=== PATIENT | male | born 1995 | race American Indian/Alaskan Native ===

== ENCOUNTER 2016-08-02 03:15 | Inpatient (IN) | payer MEDICAID ==
--- NOTE | 2016-08-02 03:49 | Emergency Department Report ---
- General Chief Complaint: Upper Respiratory Infection Stated Complaint: FLU SYMPTOMS Time Seen by Provider: 08/02/16 03:44 Source: patient Mode of arrival: Ambulatory Limitations: No Limitations - History of Present Illness Initial Comments: Patient is a 21-year-old male who presents to ED complaining of generalized body aches, cough, fever 5 days. Patient states that days ago he began with a fever. Patient states he measured a fever at 102F. Patient states he was taking [id number] Tylenol flu and cold medication but to no relief. Patient admits intermediate productive green mucous cough. Patient admits to night sweats, chills, moderate generalized body aches. Patient reports traveling to [place] where his family is from in April 2016. Patient denies nausea/vomiting/abdominal pain/diarrhea/ throat pain/runny nose. -: days(s) Consistency: intermittent Improves With: nothing Associated Symptoms: fever, chills, headache, cough, right sweats. denies: abdominal pain, nausea, vomiting, diarrhea, confusion - Related Data Home Medications Medication Instructions Recorded Confirmed Last Taken No Known Home Medications [No 08/02/16 08/02/16 Unknown Reported Home Medications] Allergies Allergy/AdvReac Type Severity Reaction Status Date / Time No Known Allergies Allergy Unverified 08/01/13 14:59 ED Review of Systems ROS: Stated complaint: FLU SYMPTOMS Other details as noted in HPI Constitutional: denies: chills, fever Eyes: denies: eye pain, eye discharge, vision change ENT: denies: ear pain, throat pain Respiratory: cough. denies: shortness of breath, wheezing Cardiovascular: denies: chest pain, palpitations Endocrine: no symptoms reported. denies: see HPI, excessive sweating, flushing , intolerance to cold Gastrointestinal: denies: abdominal pain, nausea, vomiting, diarrhea, constipation, hematemesis Genitourinary: denies: urgency, dysuria Musculoskeletal: denies: back pain, joint swelling, arthralgia Skin: denies: rash, lesions Neurological: denies: headache, weakness, paresthesias, confusion Psychiatric: denies: anxiety, depression Hematological/Lymphatic: denies: easy bleeding, easy bruising ED Past Medical Hx - Past Medical History Previous Medical History?: No - Surgical History Past Surgical History?: No - Social History Smoking Status: Current Every Day Smoker Substance Use Type: Marijuana - Medications Home Medications: Home Medications Medication Instructions Recorded Confirmed Last Taken Type No Known Home Medications [No 08/02/16 08/02/16 Unknown History Reported Home Medications] ED Physical Exam - General Limitations: No Limitations General appearance: alert, in no apparent distress - Head Head exam: Present: atraumatic, normocephalic - Eye Eye exam: Present: normal appearance, PERRL, EOMI - ENT ENT exam: Present: normal exam, mucous membranes moist - Neck Neck exam: Present: normal inspection. Absent: tenderness - Respiratory Respiratory exam: Present: normal lung sounds bilaterally, decreased breath sounds (on left ). Absent: respiratory distress, wheezes, rales, rhonchi, stridor - Cardiovascular Cardiovascular Exam: Present: regular rate, normal rhythm, tachycardia. Absent : systolic murmur, diastolic murmur, rubs, gallop - GI/Abdominal GI/Abdominal exam: Present: soft, normal bowel sounds. Absent: distended, tenderness, guarding, rebound - Rectal Rectal exam: Present: deferred - Extremities Exam Extremities exam: Present: normal inspection, full ROM - Back Exam Back exam: Present: normal inspection, full ROM. Absent: CVA tenderness (R), CVA tenderness (L) - Neurological Exam Neurological exam: Present: alert, oriented X3, CN II-XII intact - Psychiatric Psychiatric exam: Present: normal affect, normal mood - Skin Skin exam: Present: warm, dry, intact, normal color. Absent: rash ED Course Vital Signs 08/02/16 03:17 Temperature 100.0 F H Pulse Rate 98 H Respiratory 20 Rate Blood Pressure 144/83 [Right] O2 Sat by Pulse 100 Oximetry ED Medical Decision Making - Medical Decision Making Condition 21-year-old who presents with left lung hilar adenopathy. Patient has low-grade fever, pulse rate 98. Otherwise vital signs stable ED course: Patient received 650 mg of Tylenol. Chest x-ray ordered. Chest x-ray shows left upper lobe infiltrate measuring 6 cm lungs well-expanded no effusions or pneumothoraces. Heart size normal Point of care blood glucose:101. Rapid influenza test negative Urinalysis, CBC, Chem-7 ordered Discussed case and findings with hospitalist director hospice operations with decision to admit. Patient placed in isolation. - Differential Diagnosis 1 Tuberculosis 2 Sarcoidosis 3 Pneumonia 4 Neoplasm Critical care attestation.: If time is entered above; I have spent that time in minutes in the direct care of this critically ill patient, excluding procedure time. ED Disposition Clinical Impression: Pulmonary infiltrate in left lung on chest x-ray Disposition: OP ADMITTED IP TO THIS HOSP Is pt being admited?: Yes Does the pt Need Aspirin: No Condition: Stable Referrals: PRIMARY CARE, [Primary Care Provider] - 3-5 Days
[2016-08-02] MEDS ORDERED: TYLENOL PO ONE (03:58)
[2016-08-02] MEDS ORDERED: TYLENOL ONE (03:59)
--- NOTE | 2016-08-02 05:21 | XRay Report ---
FINAL REPORT PROCEDURE: XR CHEST ROUTINE 2V TECHNIQUE: A portable AP chest radiograph was obtained at 08/02/2016 04:01 (EST) . CPT 91081 HISTORY: prod cough/sob COMPARISON: No prior studies are available for comparison. FINDINGS: Heart: Normal. Mediastinum/Vessels: Lungs left hilar adenopathy.. Lungs/Pleural space: There is a large opacity in the left upper lung measuring 6 centimeters suggesting an infiltrate. Mass cannot be entirely excluded. Lungs are well-expanded. There are no effusions or pneumothoraces.. Bony thorax: No acute osseous abnormality. Life support devices: None. IMPRESSION: Heart size is normal.. There is a large opacity in the left upper lung measuring 6 centimeters suggesting an infiltrate. Mass cannot be entirely excluded. Lungs are well-expanded. There are no effusions or pneumothoraces.. Lungs left hilar adenopathy..
[2016-08-02 05:57] LABS: Bilirubin,Urine NEG (Negative); Blood,Urine NEG (Negative); Ketones,Urine TR mg/dL (Negative); Leukocyte Esterase,Urine NEG (Negative); Mucus,Urine FEW /HPF; Nitrite,Urine NEG (Negative); Protein,Urine <15 mg/dL mg/dL (Negative); Urobilinogen,Urine < 2.0 mg/dL (<2.0)
[2016-08-02 07:23] LABS: Hematocrit 39.7 % (35.5-45.6); Hemoglobin 13.6 gm/dl (11.8-15.2); Mean Corpuscular HGB Conc 34 % (32-34); Mean Corpuscular Hemoglobin 30 pg (28-32); Mean Corpuscular Volume 86 fl (84-94); Platelet Count 180 K/mm3 (140-440); Red Blood Count 4.59 M/mm3 (3.65-5.03); Red Cell Distribution Width 13.3 % (13.2-15.2); White Blood Count 7.6 K/mm3 (4.5-11.0)
[2016-08-02 08:19] LABS: Alanine Aminotransferase 21 units/L (7-56); Albumin 3.9 g/dL (3.9-5); Albumin/Globulin Ratio 1.1 %; Alkaline Phosphatase 55 units/L (35-129); Anion Gap 20 mmol/L; BUN/Creatinine Ratio 6.66; Bilirubin,Total 0.4 mg/dL (0.1-1.2); Blood Urea Nitrogen 6 mg/dL (9-20); Calcium 9.1 mg/dL (8.4-10.2); Carbon Dioxide 25 mmol/L (22-30); Chloride 97.2 mmol/L (98-107); Glucose 107 mg/dL (75-100); Sodium 138 mmol/L (137-145); Total Protein 7.4 g/dL (6.3-8.2)
[2016-08-02] MEDS ORDERED: MILK OF MAGNESIA PO PRN (08:53)
[2016-08-02] MEDS ORDERED: ZOFRAN IV PRN (08:53)
--- NOTE | 2016-08-02 09:15 | History and Physical Report ---
History of Present Illness Date of examination: 08/02/16 Date of admission: 08/02/16 06:46 Chief complaint: cough and fever History of present illness: Patient is a 21-year-old male who presents to ED complaining of generalized body aches, cough, fever 5 days. Patient states that days ago he began with a fever. Patient states he measured a fever at 102F. Patient states he was taking [id number] Tylenol flu and cold medication but no relief. Patient admits intermediate productive green mucous cough, night sweats, chills, moderate generalized body aches. Patient reports traveling to [place] where his family is from in April 2016. Patient denies nausea/vomiting/abdominal pain/diarrhea/ throat pain/runny nose. In the ER had CXR which showed left upper lobe infiltrates, he is getting admitted for possible TB and further management. Past History Past Medical History: No medical history Past Surgical History: No surgical history Social history: denies: smoking, alcohol abuse Family history: no significant family history Medications and Allergies Allergies Allergy/AdvReac Type Severity Reaction Status Date / Time No Known Allergies Allergy Unverified 08/01/13 14:59 Home Medications Medication Instructions Recorded Confirmed Last Taken Type No Known Home Medications [No 08/02/16 08/02/16 Unknown History Reported Home Medications] Active Meds: Active Medications Acetaminophen (Tylenol) 650 mg PO Q4H PRN PRN Reason: Pain MILD(1-3)/Fever >100.5/STALEY Albuterol/Ipratropium (Duoneb 0.5 Mg-3 Mg/3 Ml Soln) 1 ampul IH Q6HRT EDEN Bisacodyl (Dulcolax) 10 mg ID QDAY PRN PRN Reason: Constipation unrelieved by MOM Magnesium Hydroxide (Milk Of Magnesia) 30 ml PO Q4H PRN PRN Reason: Constipation Ondansetron HCl (Zofran) 4 mg IV Q8H PRN PRN Reason: N/V unrelieved by Reglan Oxycodone/Acetaminophen (Percocet 5/325) 1 tab PO Q6H PRN PRN Reason: Pain, Moderate (4-6) Review of System: Constitutional: +fever, + chills, +weight loss Ears, eyes, nose, mouth and throat: no nasal congestion, no nasal discharge, no sinus pressure, no vision change, no red eye. Neck: No neck pain or rigidity. Cardiovascular: pleuratic chest pain, no orthopnea, no palpitations, no leg swelling Respiratory: No shortness of breath, + cough, no congestion, no wheezing Gastrointestinal: no abdominal pain, no nausea, no vomiting Genitourinary : no dysuria, no hematuria Musculoskeletal: no joint swelling or muscle ache Integumentary: no rash, no pruritis Neurological: no parathesias, no numbness, no tingling Endocrine: no cold or heat intolerance, no polyuria or polydipsia Hematologic/Lymphatic: no easy bruising, no easy bleeding, no gland swelling Allergic/Immunologic: no urticaria, no angioedema. Exam - Physical Exam Narrative exam: GENERAL: This is well-developed well-nourished male lying on bed appeared to be in no discomfort. HEENT: Normocephalic. Atraumatic. Extraocular motions are intact. No conjunctival congestion or icterus. Patient has moist mucous membranes. External auditory canal and nares patent bilaterally. NECK: Supple. Trachea midline. No JVD, thyromagaly or lymphadenopathy. CHEST/LUNGS: Clear to auscultated bilaterally. There is no respiratory distress noted, breathing nonlabored. No wheezes crackles or rhonchi. HEART/CARDIOVASCULAR: Regular in rate and rhythm. PMI at the apex. There is no gallop rub or murmur. ABDOMEN: Abdomen is soft, nontender. Patient has normal bowel sounds. There is no abdominal distention. No organomagaly or rigidity. SKIN: There is no rash, no erythrema. There is no diaphoresis. Warm and dry. NEUROLOGY: The patient is awake, alert, and oriented. The patient is cooperative. The patient has normal speech. No focal motor deficit. MUSCULOSKELETAL: No joint effusion or tenderness. Muscle strength equal bilaterally. No muscle wasting. EXTRIMITY: No edema, cyanosis or clubbing. PSYCH: No depression or anxiety noted. Cooperative. - Constitutional Vitals: Temp Pulse Resp BP Pulse Ox 98.8 F 67 20 116/74 98 08/02/16 08:00 08/02/16 08:00 08/02/16 08:13 08/02/16 08:00 08/02/16 08:13 Results - Labs CBC & Chem 7: 08/02/16 06:50 08/02/16 06:50 Labs: Laboratory Last Values WBC 7.6 K/mm3 (4.5-11.0) 08/02/16 06:50 RBC 4.59 M/mm3 (3.65-5.03) 08/02/16 06:50 Hgb 13.6 gm/dl (11.8-15.2) 08/02/16 06:50 Hct 39.7 % (35.5-45.6) 08/02/16 06:50 MCV 86 fl (84-94) 08/02/16 06:50 MCH 30 pg (28-32) 08/02/16 06:50 MCHC 34 % (32-34) 08/02/16 06:50 RDW 13.3 % (13.2-15.2) 08/02/16 06:50 Plt Count 180 K/mm3 (140-440) 08/02/16 06:50 [place] % (Auto) [employer] 08/02/16 06:50 Sodium 138 mmol/L (137-145) 08/02/16 06:50 Potassium 4.0 mmol/L (3.6-5.0) 08/02/16 06:50 Chloride 97.2 mmol/L (98-107) L 08/02/16 06:50 Carbon Dioxide 25 mmol/L (22-30) 08/02/16 06:50 Anion Gap 20 mmol/L 08/02/16 06:50 BUN 6 mg/dL (9-20) L 08/02/16 06:50 Creatinine 0.9 mg/dL (0.8-1.5) 08/02/16 06:50 Estimated GFR > 60 ml/min 08/02/16 06:50 BUN/Creatinine Ratio 6.66 % 08/02/16 06:50 Glucose 107 mg/dL (75-100) H 08/02/16 06:50 POC Glucose 101 (70-105) 08/02/16 04:41 Calcium 9.1 mg/dL (8.4-10.2) 08/02/16 06:50 Total Bilirubin 0.4 mg/dL (0.1-1.2) 08/02/16 06:50 AST 28 units/L (5-40) 08/02/16 06:50 ALT 21 units/L (7-56) 08/02/16 06:50 Alkaline Phosphatase 55 units/L (35-129) 08/02/16 06:50 Total Protein 7.4 g/dL (6.3-8.2) 08/02/16 06:50 Albumin 3.9 g/dL (3.9-5) 08/02/16 06:50 Albumin/Globulin Ratio 1.1 % 08/02/16 06:50 Urine Color Yellow (Yellow) 08/02/16 Unknown Urine Turbidity Clear (Clear) 08/02/16 Unknown Urine pH 6.0 (5.0-7.0) 08/02/16 Unknown Ur Specific [place] 1.016 (1.003-1.030) 08/02/16 Unknown Urine Protein <15 mg/dl mg/dL (Negative) 08/02/16 Unknown Urine Glucose (UA) Neg mg/dL (Negative) 08/02/16 Unknown Urine Ketones Tr mg/dL (Negative) 08/02/16 Unknown Urine Blood Neg (Negative) 08/02/16 Unknown Urine Nitrite Neg (Negative) 08/02/16 Unknown Urine Bilirubin Neg (Negative) 08/02/16 Unknown Urine Urobilinogen < 2.0 mg/dL (<2.0) 08/02/16 Unknown Ur Leukocyte Esterase Neg (Negative) 08/02/16 Unknown Urine WBC (Auto) 3.0 /HPF (0.0-6.0) 08/02/16 Unknown Urine RBC (Auto) 3.0 /HPF (0.0-6.0) 08/02/16 Unknown Urine Mucus Few /HPF 08/02/16 Unknown - Imaging and Cardiology Chest x-ray: report reviewed (left upper lobe consolidation) Assessment and Plan Assessment and plan: left upper lobe PNA vs possible TB Plan: place on emperic antibiotics check for HIV sputum for AFB TB skin test ID consult Advance Directives: Yes Plan of care discussed with patient/family: Yes
[2016-08-02] MEDS ORDERED: DULCOLAX PR PRN (10:00)
[2016-08-02 10:20] LABS: Basophils % (Manual) 0 % (0.0-1.8); Blastocytes % (Manual) 0 %
[2016-08-02 10:21] LABS: Anisocytosis 1+; Diff Status Complete; Hypochromasia Rare
[2016-08-02] MEDS: PERCOCET 5/325 PO PRN ×3 (10:36→22:52)
[2016-08-02] MEDS ORDERED: APLISOL ID ONE (11:54)
[2016-08-02] MEDS: PROTONIX PO SCH (12:48)
[2016-08-02] MEDS: TYLENOL PO PRN (14:06)
[2016-08-02] MEDS: DUONEB 0.5 MG-3 MG/3 ML SOLN IH SCH ×2 (14:45→20:11)
[2016-08-02] MEDS ORDERED: VANCOMYCIN VIAL IV ONE (17:02)
[2016-08-02] MEDS ORDERED: VANCOMYCIN/NS 1 GM/250 ML 250 ML IV ONE ×2 (17:37→17:44)
[2016-08-02] MEDS ORDERED: ZOSYN/NS 4.5GM/100ML 100 ML IV SCH ×2 (18:00→21:00)
[2016-08-02] MEDS ORDERED: VANCOMYCIN PHARMACY TO DOSE IV SCH (18:00)
[2016-08-02] MEDS: LOVENOX SUB-Q SCH (22:53)
[2016-08-02] MEDS: ZOSYN/NS 4.5GM/100ML 100 ML IV SCH (23:00)
[2016-08-03] MEDS: DUONEB 0.5 MG-3 MG/3 ML SOLN IH SCH ×6 (00:33→20:31)
[2016-08-03] MEDS ORDERED: VANCOMYCIN/NS 1 GM/250 ML 250 ML IV SCH (06:00)
[2016-08-03] MEDS: PERCOCET 5/325 PO PRN ×3 (06:08→16:26)
[2016-08-03] MEDS: ZOSYN/NS 4.5GM/100ML 100 ML IV SCH (06:10)
[2016-08-03] MEDS: PROTONIX PO SCH ×2 (10:10→12:40)
--- NOTE | 2016-08-03 10:44 | Progress Note ---
Assessment and Plan Assessment and plan: Left upper lobe pneumonia. Continue Zosyn and Vancomycin. To rule out TB. Sputum AFB x 3. ID Physician consulted. Fever due to SEGUN Pneumonia. DVT Prophylaxis with SCDs and Lovenox. History Interval history: Headache, Dizziness, cough, fever Hospitalist Physical - Physical exam Narrative exam: Gen: Not in acute distress HEENT: Normocephalic, atraumatic Neck :supple, no JVD Lungs: Crackles left upper lung field, no wheeze Heart S1 and S2 regular, no murmurs no gallop Abdomen:soft, nontender, nondistended, normal bowel sounds Ext: No edema, no clubbing or cyanosis Neuro: Awake alert oriented x 3 - Constitutional Vitals: Temp Pulse Resp BP Pulse Ox 99.3 F 78 18 108/54 100 08/03/16 08:30 08/03/16 08:30 08/03/16 08:30 08/03/16 08:30 08/03/16 08:30 Results - Labs CBC & Chem 7: 08/03/16 13:26 08/03/16 13:26 Labs: Laboratory Last Values WBC 7.6 K/mm3 (4.5-11.0) 08/02/16 06:50 RBC 4.59 M/mm3 (3.65-5.03) 08/02/16 06:50 Hgb 13.6 gm/dl (11.8-15.2) 08/02/16 06:50 Hct 39.7 % (35.5-45.6) 08/02/16 06:50 MCV 86 fl (84-94) 08/02/16 06:50 MCH 30 pg (28-32) 08/02/16 06:50 MCHC 34 % (32-34) 08/02/16 06:50 RDW 13.3 % (13.2-15.2) 08/02/16 06:50 Plt Count 180 K/mm3 (140-440) 08/02/16 06:50 [place] % (Auto) Process Control Tech 08/02/16 06:50 Add Manual Diff Complete 08/02/16 06:50 Total Counted 100 08/02/16 06:50 Seg Neuts % (Manual) 36.0 % (40.0-70.0) L 08/02/16 06:50 Band Neutrophils % 26.0 % 08/02/16 06:50 Lymphocytes % (Manual) 12.0 % (13.4-35.0) L 08/02/16 06:50 Reactive Lymphs % (Man) 2.0 % 08/02/16 06:50 Monocytes % (Manual) 20.0 % (0.0-7.3) H 08/02/16 06:50 Eosinophils % (Manual) 1.0 % (0.0-4.3) 08/02/16 06:50 Basophils % (Manual) 0 % (0.0-1.8) 08/02/16 06:50 Metamyelocytes % 3.0 % 08/02/16 06:50 Myelocytes % 0 % 08/02/16 06:50 Promyelocytes % 0 % 08/02/16 06:50 Blast Cells % 0 % 08/02/16 06:50 Nucleated RBC % Not Reportable 08/02/16 06:50 Seg Neutrophils # Man 2.7 K/mm3 (1.8-7.7) 08/02/16 06:50 Band Neutrophils # 2.0 K/mm3 08/02/16 06:50 Lymphocytes # (Manual) 0.9 K/mm3 (1.2-5.4) L 08/02/16 06:50 Abs React Lymphs (Man) 0.2 K/mm3 08/02/16 06:50 Monocytes # (Manual) 1.5 K/mm3 (0.0-0.8) H 08/02/16 06:50 Eosinophils # (Manual) 0.1 K/mm3 (0.0-0.4) 08/02/16 06:50 Basophils # (Manual) 0.0 K/mm3 (0.0-0.1) 08/02/16 06:50 Metamyelocytes # 0.2 K/mm3 08/02/16 06:50 Myelocytes # 0.0 K/mm3 08/02/16 06:50 Promyelocytes # 0.0 K/mm3 08/02/16 06:50 Blast Cells # 0.0 K/mm3 08/02/16 06:50 WBC Morphology Not Reportable 08/02/16 06:50 Hypersegmented Neuts Not Reportable 08/02/16 06:50 Hyposegmented Neuts Not Reportable 08/02/16 06:50 Hypogranular Neuts Not Reportable 08/02/16 06:50 Smudge Cells Not Reportable 08/02/16 06:50 Toxic Granulation Not Reportable 08/02/16 06:50 Toxic Vacuolation Not Reportable 08/02/16 06:50 Dohle Bodies Not Reportable 08/02/16 06:50 Pelger-Huet Anomaly Not Reportable 08/02/16 06:50 Allie Rods Not Reportable 08/02/16 06:50 Platelet Estimate Appears normal 08/02/16 06:50 Clumped Platelets Not Reportable 08/02/16 06:50 Plt Clumps, EDTA Not Reportable 08/02/16 06:50 Large Platelets Not Reportable 08/02/16 06:50 Giant Platelets Not Reportable 08/02/16 06:50 Platelet Satelliting Not Reportable 08/02/16 06:50 Plt Morphology Comment Not Reportable 08/02/16 06:50 RBC Morphology Not Reportable 08/02/16 06:50 Dimorphic RBCs Not Reportable 08/02/16 06:50 Polychromasia Not Reportable 08/02/16 06:50 Hypochromasia Rare 08/02/16 06:50 Poikilocytosis Not Reportable 08/02/16 06:50 Anisocytosis 1+ 08/02/16 06:50 Microcytosis Not Reportable 08/02/16 06:50 Macrocytosis Not Reportable 08/02/16 06:50 Spherocytes Not Reportable 08/02/16 06:50 Pappenheimer Bodies Not Reportable 08/02/16 06:50 Sickle Cells Not Reportable 08/02/16 06:50 Target Cells Not Reportable 08/02/16 06:50 Tear Drop Cells Not Reportable 08/02/16 06:50 Ovalocytes Not Reportable 08/02/16 06:50 Helmet Cells Not Reportable 08/02/16 06:50 [place] Bodies Not Reportable 08/02/16 06:50 [place] Rings Not Reportable 08/02/16 06:50 [place] Cells Not Reportable 08/02/16 06:50 Bite Cells Not Reportable 08/02/16 06:50 Crenated Cell Not Reportable 08/02/16 06:50 Elliptocytes Not Reportable 08/02/16 06:50 Acanthocytes (Spur) Not Reportable 08/02/16 06:50 Rouleaux Not Reportable 08/02/16 06:50 Hemoglobin C Crystals Not Reportable 08/02/16 06:50 Schistocytes Not Reportable 08/02/16 06:50 Malaria parasites Not Reportable 08/02/16 06:50 [place] Bodies Not Reportable 08/02/16 06:50 Hem Pathologist Commnt No 08/02/16 06:50 Sodium 138 mmol/L (137-145) 08/02/16 06:50 Potassium 4.0 mmol/L (3.6-5.0) 08/02/16 06:50 Chloride 97.2 mmol/L (98-107) L 08/02/16 06:50 Carbon Dioxide 25 mmol/L (22-30) 08/02/16 06:50 Anion Gap 20 mmol/L 08/02/16 06:50 BUN 6 mg/dL (9-20) L 08/02/16 06:50 Creatinine 0.9 mg/dL (0.8-1.5) 08/02/16 06:50 Estimated GFR > 60 ml/min 08/02/16 06:50 BUN/Creatinine Ratio 6.66 % 08/02/16 06:50 Glucose 107 mg/dL (75-100) H 08/02/16 06:50 POC Glucose 101 (70-105) 08/02/16 04:41 Calcium 9.1 mg/dL (8.4-10.2) 08/02/16 06:50 Total Bilirubin 0.4 mg/dL (0.1-1.2) 08/02/16 06:50 AST 28 units/L (5-40) 08/02/16 06:50 ALT 21 units/L (7-56) 08/02/16 06:50 Alkaline Phosphatase 55 units/L (35-129) 08/02/16 06:50 Total Protein 7.4 g/dL (6.3-8.2) 08/02/16 06:50 Albumin 3.9 g/dL (3.9-5) 08/02/16 06:50 Albumin/Globulin Ratio 1.1 % 08/02/16 06:50 Urine Color Yellow (Yellow) 08/02/16 Unknown Urine Turbidity Clear (Clear) 08/02/16 Unknown Urine pH 6.0 (5.0-7.0) 08/02/16 Unknown Ur Specific [place] 1.016 (1.003-1.030) 08/02/16 Unknown Urine Protein <15 mg/dl mg/dL (Negative) 08/02/16 Unknown Urine Glucose (UA) Neg mg/dL (Negative) 08/02/16 Unknown Urine Ketones Tr mg/dL (Negative) 08/02/16 Unknown Urine Blood Neg (Negative) 08/02/16 Unknown Urine Nitrite Neg (Negative) 08/02/16 Unknown Urine Bilirubin Neg (Negative) 08/02/16 Unknown Urine Urobilinogen < 2.0 mg/dL (<2.0) 08/02/16 Unknown Ur Leukocyte Esterase Neg (Negative) 08/02/16 Unknown Urine WBC (Auto) 3.0 /HPF (0.0-6.0) 08/02/16 Unknown Urine RBC (Auto) 3.0 /HPF (0.0-6.0) 08/02/16 Unknown Urine Mucus Few /HPF 08/02/16 Unknown
--- NOTE | 2016-08-03 11:07 | Consultation ---
History of Present Illness - Reason for Consult Consult date: 08/03/16 pneumonia, rule out tuberculosis Requesting physician: KWAME JUNE - History of Present Illness This is a pleasant healthy 21 year old gentleman who was in good health until July 29 when he woke up with fever of 102 with associated headache. He had shaking chills, body aches and pain. On Wednesdayaugust 31 he started to develope a dry cough that became productive when he arrived to the hospital. He denied rash, nausea, vomiting and diarrhea. He traveled to [place] in April , spent one week. He was not ill while in [place]. On admission to the hospital he was found to have a normal wbc with elevated monocytes. Highest temperature in the hospital has been 100.6. A chest xray revealed a large opacity in the left upper lung measuring 6 centimeters. Patient was initiated on vancomycin and zosyn. Infectious disease consult was called to evaluate Past History Past Medical History: No medical history Past Surgical History: No surgical history Social history: single, smoking (socially, 1-3 cigaretts per week). denies: IV drug use Family history: other (sister has Digeorge disease) Medications and Allergies Allergies Allergy/AdvReac Type Severity Reaction Status Date / Time No Known Allergies Allergy Unverified 08/01/13 14:59 Home Medications Medication Instructions Recorded Confirmed Last Taken Type No Known Home Medications [No 08/02/16 08/02/16 Unknown History Reported Home Medications] Active Meds: Active Medications Acetaminophen (Tylenol) 650 mg PO Q4H PRN PRN Reason: Pain MILD(1-3)/Fever >100.5/STALEY Last Admin: 08/02/16 14:06 Dose: 650 mg Albuterol/Ipratropium (Duoneb 0.5 Mg-3 Mg/3 Ml Soln) 1 ampul IH Q6HRT [facility] Last Admin: 08/03/16 07:56 Dose: 1 ampul Bisacodyl (Dulcolax) 10 mg W[place] QDAY PRN PRN Reason: Constipation unrelieved by MOM Enoxaparin Sodium (Lovenox) 40 mg SUB-Q QDAY@2200 [facility] Last Admin: 08/02/16 22:53 Dose: 40 mg Piperacillin Sod/Tazobactam Sod (Zosyn/Ns 4.5gm/100ml) 100 mls @ 200 mls/hr IV Q8HR EDEN PRN Reason: Protocol Last Admin: 08/03/16 06:10 Dose: 200 mls/hr Vancomycin HCl 1,250 mg/ (Sodium Chloride) 250 mls @ 166.667 mls/hr IV Q8H EDEN Magnesium Hydroxide (Milk Of Magnesia) 30 ml PO Q4H PRN PRN Reason: Constipation Ondansetron HCl (Zofran) 4 mg IV Q8H PRN PRN Reason: N/V unrelieved by Reglan Oxycodone/Acetaminophen (Percocet 5/325) 1 tab PO Q6H PRN PRN Reason: Pain, Moderate (4-6) Last Admin: 08/03/16 06:08 Dose: 1 tab Pantoprazole (Protonix) 40 mg PO QDAY [facility] Last Admin: 08/03/16 10:10 Dose: Not Given Vancomycin HCl (Vancomycin Pharmacy To Dose) 1 each IV PKCONSULT EDEN PRN Reason: Protocol Last Admin: 08/02/16 17:44 Dose: 1 each Review of Systems Constitutional: fever, chills, fatigue, weakness, malaise, no weight loss, no weight gain, no sweats Ears, nose, mouth and throat: no ear pain, no tinnitis, no decreased hearing, no nose pain, no nasal discharge, no mouth pain, no dysphagia, no sore throat, no swelling in mouth Cardiovascular: no orthopnea, no palpitations, no shortness of breath, no claudication Respiratory: cough with sputum, no excessive sputum, no hemoptysis, no pleurisy , no pain Gastrointestinal: loss of appetite, no nausea, no vomiting, no diarrhea, no constipation Genitourinary Male: no dysuria, no flank pain, no genital pain Rectal: no incontinence, no bleeding Musculoskeletal: no neck pain, no low back pain, no morning stiffness, no muscle weakness Integumentary: no rash, no pruritis, no bullae, no darkening of skin Neurological: headaches, no paralysis, no migraines Psychiatric: no anxiety, no disorientation Endocrine: no heat intolerance, no flushing Physical Examination - Constitutional Vitals: Selected Entries 08/03/16 08/03/16 08:05 08:30 Temperature 99.3 F Pulse Rate [ 78 From Monitor] Respiratory 18 Rate Respiratory 17 Rate [Bilateral ] O2 Sat by Pulse 100 Oximetry Blood Pressure 108/54 [Left Arm] Blood Pressure 72 Mean [Left Arm] General appearance: Present: mild distress (coughing), well-nourished - EENT Eyes: Present: PERRL, EOM intact. Absent: scleral icterus, conjunctival injection ENT: hearing intact, clear oral mucosa, dentition normal - Neck Neck: Present: supple, normal ROM. Absent: enlarged thyroid, masses or JVD - Respiratory Respiratory: bilateral: rales - Cardiovascular Rhythm: regular Heart Sounds: Present: S1 & S2 - Extremities Extremities: no ischemia, No edema, normal temperature - Abdominal General gastrointestinal: Present: soft, non-tender, normal bowel sounds Male genitourinary: Present: deferred - Rectal Rectal Exam: deferred - Integumentary Integumentary: Present: clear, warm, dry. Absent: jaundice, rash - Musculoskeletal Musculoskeletal: generalized weakness Results - Labs CBC & Chem 7: 08/02/16 06:50 08/02/16 06:50 Labs: Microbiology 08/02/16 Unknown Nasopharyngeal Swab Influenza Types A,B Antigen (PREMA) - Final 08/02/16 15:05 Sputum - Expectorated Sputum Sputum Culture - Final Laboratory Tests 08/02/16 08/02/16 06:50 06:50 WBC 7.6 Plt Count 180 Seg Neuts % (Manual) 36.0 L Monocytes % (Manual) 20.0 H Monocytes # (Manual) 1.5 H Creatinine 0.9 Estimated GFR > 60 Assessment and Plan 1) vancomycin 1,250 mg iv Q8H (08/02/16 2) zosyn 4.5 gm iv Q8H (08/02/16 This is a pleasant 21 year old man without any significant past medical problems who presents with the acute onset of fevers followed by a dry cough that became productive. He also had body aches and pain. Chest xray with left upper lobe opacity with hilar adenopathy. Patient does not have hemoptysis Problems: 1) left upper lobe pneumonia, the pneumonia was acute onset without hemoptysis or ongoing weight loss. I believe that this is the usual community acquired pneumonia, do not believe this is pulmonary tuberculosis. His Tb skin test is negative so far. Patient does not have risk factors for tuberculosis. 2) fever, related to #1 Plan: 1) discontinue vancomycin and zosyn, this is too broad 2) start ceftriaxone 1gm iv Q24H 3) zithromax 500mg iv Q24H 4) blood culture x 2 today 5) obtain sputum gram stain and culture, specimen sent by me 6) obtain AFB smear, specimen sent by me 7) obtain mycobacterium serology 8) obtain urinary legionella antigen 9) obtain CT scan of chest 10) sputum AFB can be collected every 8 hours
[2016-08-03 13:40] LABS: Hematocrit 38.8 % (35.5-45.6); Hemoglobin 13.1 gm/dl (11.8-15.2); Mean Corpuscular HGB Conc 34 % (32-34); Mean Corpuscular Hemoglobin 29 pg (28-32); Mean Corpuscular Volume 86 fl (84-94); Platelet Count 185 K/mm3 (140-440); Red Blood Count 4.52 M/mm3 (3.65-5.03); Red Cell Distribution Width 12.7 % (13.2-15.2); White Blood Count 7.7 K/mm3 (4.5-11.0)
[2016-08-03 13:54] LABS: Anion Gap 18 mmol/L; Blood Urea Nitrogen 6 mg/dL (9-20); Calcium 8.6 mg/dL (8.4-10.2); Carbon Dioxide 26 mmol/L (22-30); Chloride 97.7 mmol/L (98-107); Glucose 105 mg/dL (75-100); Potassium 3.7 mmol/L (3.6-5.0); Sodium 138 mmol/L (137-145)
[2016-08-03] MEDS: ROCEPHIN/NS 1 GM/50 ML 50 ML IV SCH (14:06)
[2016-08-03] MEDS: ZITHROMAX 500 MG in NACL 0.9% 250ML 250 ML IV SCH (14:07)
[2016-08-03 14:21] LABS: Basophils % (Manual) 0 % (0.0-1.8); Blastocytes % (Manual) 0 %; Eosinophils % (Manual) 0 % (0.0-4.3)
[2016-08-03 14:22] LABS: Anisocytosis 1+
[2016-08-03 14:26] LABS: Diff Status Complete
--- NOTE | 2016-08-03 15:18 | Cat Scan Report ---
CT chest with contrast: Transverse images through the chest into the upper abdomen are performed with coronal and sagittal 2-D reformatted images. There is dense consolidation involving most of the left upper lobe with some aeration in the apex and anterior segments. There are air bronchograms. There is no obvious endobronchial mass in the central airways appear patent. Minimal patchy changes are identified in the superior segment of the left lower lobe and along the minor fissure on the right in the upper lobe. The lungs otherwise appear generally well-aerated and clear. There is no obvious hilar or mediastinal adenopathy identified. The cardiac chambers appear normal in size. The thoracic aorta is normal in size and contour. There are no obvious pulmonary emboli however the study is not adequate for total exclusion. Impressions: 1. Left upper lobe consolidation consistent with an inflammatory process. 2. Minimal areas of infiltrate or atelectasis involving the right lower lobe and left upper lobe.
[2016-08-03] MEDS ORDERED: VANCOMYCIN VIAL 1,250 MG in NACL 0.9% 250ML 250 ML IV SCH (16:00)
[2016-08-03] MEDS: LOVENOX SUB-Q SCH (21:16)
[2016-08-04] MEDS: DUONEB 0.5 MG-3 MG/3 ML SOLN IH SCH ×4 (02:03→20:40)
[2016-08-04] MEDS: PERCOCET 5/325 PO PRN ×3 (08:04→20:36)
[2016-08-04] MEDS: ROCEPHIN/NS 1 GM/50 ML 50 ML IV SCH (10:03)
[2016-08-04] MEDS: PROTONIX PO SCH (10:04)
[2016-08-04] MEDS: ZITHROMAX 500 MG in NACL 0.9% 250ML 250 ML IV SCH (10:04)
--- NOTE | 2016-08-04 11:08 | Progress Note ---
Assessment and Plan Current antibiotics: Ceftriaxone 1 g IV q24h 08/03 --> Azithromycin 500 mg IV q24h 08/03 --> Previous antibiotics: Vancomycin 1,250 mg IV q8h 08/02/16-08/03 Zosyn 4.5 gm IV q8h 08/02/16-08/03 ASSESSMENT: Yoel Escamilla is a 21 year old man without any significant past medical problems who was admitted to [facility] on 08/02/16 with the acute onset of fevers followed by a dry cough that became productive with associated body aches and some left- sided chest pain. CXR shows left upper lobe opacity with hilar adenopathy. Problem list: 1. Left upper lobe pneumonia -Community-acquired -Doubt TB as patient has no risk factors 2. Fever -Secondary to #1 PLAN: 1. Continue ceftriaxone 1 gm IV q24h and azithromycin 500 mg IV q24h 2. Blood cultures x 2 today (not done yesterday) 3. Await AFB smears 4. Await Mycoplasma serologies 5. Await urinary legionella antigen 6. Await rapid HIV antibodies Lev Pires MD [facility] Office: [phone] Subjective Date of service: 08/04/16 Principal diagnosis: Pneumonia Interval history: Feeling somewhat better. Cough productive of "greenish sputum" only after eating. No hemoptysis. Some sweating but no actual chills. Mild left sided pleuritic chest pain during the night. Objective - Exam Narrative Exam: GENERAL: Well-developed, well-nourished appearing male who is alert and in no acute distress. Somewhat diaphoretic. HEAD: Normocephalic. No lesions seen. EYES: Pupils are equal reactive to light and accommodation. There is no scleral icterus. Optic fundi are not examined. EARS: External ears are normal. THROAT: Oropharynx is normal with no evidence of oral candidiasis or pharyngitis. NECK: Supple. No enlargement of the thyroid gland. No significant cervical lymphadenopathy. No jugular venous distention at 30. LUNGS: Clear with no adventitious sounds at present. No audible rub. HEART: Regular rate. S1 and S2 are normal. There are no murmurs, gallops, clicks or rubs heard. ABDOMEN: Soft and nontender. Liver and spleen are not palpably enlarged or tender. No palpable masses. Bowel sounds are normoactive. EXTREMITIES: No rash, peripheral lymphadenopathy, clubbing or edema. : Not examined NEUROLOGIC: No focal findings. - Constitutional Vitals: Vital Signs Temp Pulse Resp BP Pulse Ox 100.1 F H 74 18 116/63 100 08/04/16 07:32 08/04/16 08:30 08/04/16 08:30 08/04/16 07:32 08/04/16 07:32 Temperature -Last 24 Hours Temperature 100.1 F Temperature 99.2 F Temperature 100.0 F Temperature 100.1 F - Labs CBC & Chem 7: 08/03/16 13:26 08/03/16 13:26 Labs: Abnormal lab results Microbiology 08/03/16 15:15 Sputum - Expectorated Sputum Sputum Culture - Oropharyngeal contamination 08/02/16 15:05 Sputum - Expectorated Sputum Sputum Culture - Oropharyngeal contamination 08/02/16 Unknown Nasopharyngeal Swab Influenza Types A,B Antigen (PREMA) - Negative Imagin08/03/16: CXR: Left upper lobe consolidation. Minimal infiltrate versus atelectasis of the right lower lobe and left upper lobe
--- NOTE | 2016-08-04 18:03 | Progress Note ---
Assessment and Plan Assessment and plan: Left upper lobe pneumonia. Now on Rocephin and Zithromax for possible communiy acquired pneumonia. Discontinued Zosyn and Vancomycin. To rule out TB. Sputum AFB x 3. ID Physician following consulted. Re-ordered repid HIV test since blood was not drawn. Fever due to SEGUN Pneumonia. He had a temperature of 100.1 this morning. Continue Tylenol when necessary DVT Prophylaxis with SCDs and Lovenox. To CODE STATUS. Discussed with patient and mother at bedside. History Interval history: Headache, Dizziness, Less cough, fever of 100.1 today Hospitalist Physical - Physical exam Narrative exam: Gen: Not in acute distress HEENT: Normocephalic, atraumatic Neck :supple, no JVD Lungs: Crackles left upper lung field, no wheeze Heart S1 and S2 regular, no murmurs no gallop Abdomen:soft, nontender, nondistended, normal bowel sounds Ext: No edema, no clubbing or cyanosis Neuro: Awake alert oriented x 3 - Constitutional Vitals: Temp Pulse Resp BP Pulse Ox 98.5 F 93 H 14 130/74 99 08/04/16 14:54 08/04/16 14:54 08/04/16 14:54 08/04/16 14:54 08/04/16 14:54 General appearance: Present: mild distress (coughing), well-nourished Results - Labs CBC & Chem 7: 08/03/16 13:26 08/03/16 13:26 Labs: Laboratory Last Values WBC 7.7 K/mm3 (4.5-11.0) 08/03/16 13:26 RBC 4.52 M/mm3 (3.65-5.03) 08/03/16 13:26 Hgb 13.1 gm/dl (11.8-15.2) 08/03/16 13:26 Hct 38.8 % (35.5-45.6) 08/03/16 13:26 MCV 86 fl (84-94) 08/03/16 13:26 MCH 29 pg (28-32) 08/03/16 13:26 MCHC 34 % (32-34) 08/03/16 13:26 RDW 12.7 % (13.2-15.2) L 08/03/16 13:26 Plt Count 185 K/mm3 (140-440) 08/03/16 13:26 [place] % (Auto) Practice Nurse 08/03/16 13:26 Add Manual Diff Complete 08/03/16 13:26 Total Counted 100 08/03/16 13:26 Seg Neuts % (Manual) 56 % (40.0-70.0) 08/03/16 13:26 Band Neutrophils % 16.0 % 08/03/16 13:26 Lymphocytes % (Manual) 10.0 % (13.4-35.0) L 08/03/16 13:26 Reactive Lymphs % (Man) 0 % 08/03/16 13:26 Monocytes % (Manual) 18 % (0.0-7.3) H 08/03/16 13:26 Eosinophils % (Manual) 0 % (0.0-4.3) 08/03/16 13:26 Basophils % (Manual) 0 % (0.0-1.8) 08/03/16 13:26 Metamyelocytes % 0 % 08/03/16 13:26 Myelocytes % 0 % 08/03/16 13:26 Promyelocytes % 0 % 08/03/16 13:26 Blast Cells % 0 % 08/03/16 13:26 Nucleated RBC % Not Reportable 08/03/16 13:26 Seg Neutrophils # Man 5.0 K/mm3 (1.8-7.7) 08/03/16 13:26 Band Neutrophils # 1.2 K/mm3 08/03/16 13:26 Lymphocytes # (Manual) 0.8 K/mm3 (1.2-5.4) L 08/03/16 13:26 Abs React Lymphs (Man) 0.0 K/mm3 08/03/16 13:26 Monocytes # (Manual) 0.7 K/mm3 (0.0-0.8) 08/03/16 13:26 Eosinophils # (Manual) 0.0 K/mm3 (0.0-0.4) 08/03/16 13:26 Basophils # (Manual) 0.0 K/mm3 (0.0-0.1) 08/03/16 13:26 Metamyelocytes # 0.0 K/mm3 08/03/16 13:26 Myelocytes # 0.0 K/mm3 08/03/16 13:26 Promyelocytes # 0.0 K/mm3 08/03/16 13:26 Blast Cells # 0.0 K/mm3 08/03/16 13:26 WBC Morphology Not Reportable 08/03/16 13:26 Hypersegmented Neuts Not Reportable 08/03/16 13:26 Hyposegmented Neuts Not Reportable 08/03/16 13:26 Hypogranular Neuts Not Reportable 08/03/16 13:26 Smudge Cells Not Reportable 08/03/16 13:26 Toxic Granulation Not Reportable 08/03/16 13:26 Toxic Vacuolation Not Reportable 08/03/16 13:26 Dohle Bodies Not Reportable 08/03/16 13:26 Pelger-Huet Anomaly Not Reportable 08/03/16 13:26 Allie Rods Not Reportable 08/03/16 13:26 Platelet Estimate Not Reportable 08/03/16 13:26 Clumped Platelets Not Reportable 08/03/16 13:26 Plt Clumps, EDTA Not Reportable 08/03/16 13:26 Large Platelets Not Reportable 08/03/16 13:26 Giant Platelets Not Reportable 08/03/16 13:26 Platelet Satelliting Not Reportable 08/03/16 13:26 Plt Morphology Comment Not Reportable 08/03/16 13:26 RBC Morphology Not Reportable 08/03/16 13:26 Dimorphic RBCs Not Reportable 08/03/16 13:26 Polychromasia Not Reportable 08/03/16 13:26 Hypochromasia Practice Nurse 08/03/16 13:26 Poikilocytosis Not Reportable 08/03/16 13:26 Anisocytosis 1+ 08/03/16 13:26 Microcytosis Not Reportable 08/03/16 13:26 Macrocytosis Not Reportable 08/03/16 13:26 Spherocytes Not Reportable 08/03/16 13:26 Pappenheimer Bodies Not Reportable 08/03/16 13:26 Sickle Cells Not Reportable 08/03/16 13:26 Target Cells Not Reportable 08/03/16 13:26 Tear Drop Cells Not Reportable 08/03/16 13:26 Ovalocytes Not Reportable 08/03/16 13:26 Helmet Cells Not Reportable 08/03/16 13:26 Tolliver-Granger Bodies Not Reportable 08/03/16 13:26 [place] Rings Not Reportable 08/03/16 13:26 Shelley Cells Not Reportable 08/03/16 13:26 Bite Cells Not Reportable 08/03/16 13:26 Crenated Cell Not Reportable 08/03/16 13:26 Elliptocytes Not Reportable 08/03/16 13:26 Acanthocytes (Spur) Not Reportable 08/03/16 13:26 Rouleaux Not Reportable 08/03/16 13:26 Hemoglobin C Crystals Not Reportable 08/03/16 13:26 Schistocytes Not Reportable 08/03/16 13:26 Malaria parasites Not Reportable 08/03/16 13:26 Virgilio Bodies Not Reportable 08/03/16 13:26 Hem Pathologist Commnt No 08/03/16 13:26 Sodium 138 mmol/L (137-145) 08/03/16 13:26 Potassium 3.7 mmol/L (3.6-5.0) 08/03/16 13:26 Chloride 97.7 mmol/L (98-107) L 08/03/16 13:26 Carbon Dioxide 26 mmol/L (22-30) 08/03/16 13:26 Anion Gap 18 mmol/L 08/03/16 13:26 BUN 6 mg/dL (9-20) L 08/03/16 13:26 Creatinine 0.8 mg/dL (0.8-1.5) 08/03/16 13:26 Estimated GFR > 60 ml/min 08/03/16 13:26 BUN/Creatinine Ratio 7.50 % 08/03/16 13:26 Glucose 105 mg/dL (75-100) H 08/03/16 13:26 POC Glucose 101 (70-105) 08/02/16 04:41 Calcium 8.6 mg/dL (8.4-10.2) 08/03/16 13:26 Total Bilirubin 0.4 mg/dL (0.1-1.2) 08/02/16 06:50 AST 28 units/L (5-40) 08/02/16 06:50 ALT 21 units/L (7-56) 08/02/16 06:50 Alkaline Phosphatase 55 units/L (35-129) 08/02/16 06:50 Total Protein 7.4 g/dL (6.3-8.2) 08/02/16 06:50 Albumin 3.9 g/dL (3.9-5) 08/02/16 06:50 Albumin/Globulin Ratio 1.1 % 08/02/16 06:50 Urine Color Yellow (Yellow) 08/02/16 Unknown Urine Turbidity Clear (Clear) 08/02/16 Unknown Urine pH 6.0 (5.0-7.0) 08/02/16 Unknown Ur Specific [place] 1.016 (1.003-1.030) 08/02/16 Unknown Urine Protein <15 mg/dl mg/dL (Negative) 08/02/16 Unknown Urine Glucose (UA) Neg mg/dL (Negative) 08/02/16 Unknown Urine Ketones Tr mg/dL (Negative) 08/02/16 Unknown Urine Blood Neg (Negative) 08/02/16 Unknown Urine Nitrite Neg (Negative) 08/02/16 Unknown Urine Bilirubin Neg (Negative) 08/02/16 Unknown Urine Urobilinogen < 2.0 mg/dL (<2.0) 08/02/16 Unknown Ur Leukocyte Esterase Neg (Negative) 08/02/16 Unknown Urine WBC (Auto) 3.0 /HPF (0.0-6.0) 08/02/16 Unknown Urine RBC (Auto) 3.0 /HPF (0.0-6.0) 08/02/16 Unknown Urine Mucus Few /HPF 08/02/16 Unknown
[2016-08-04 21:57] LABS: HIV-1 Antigen p24 Non React (Non React); HIVR-1/2 Ab Non React (Non React)
[2016-08-04] MEDS: LOVENOX SUB-Q SCH (23:09)
[2016-08-05] MEDS: PERCOCET 5/325 PO PRN ×2 (01:18→18:16)
[2016-08-05] MEDS: TYLENOL PO PRN (03:47)
[2016-08-05] MEDS: DUONEB 0.5 MG-3 MG/3 ML SOLN IH SCH ×3 (09:26→21:49)
[2016-08-05] MEDS: ROCEPHIN/NS 1 GM/50 ML 50 ML IV SCH (09:34)
[2016-08-05] MEDS: PROTONIX PO SCH (09:45)
--- NOTE | 2016-08-05 10:34 | Progress Note ---
Assessment and Plan Current antibiotics: Ceftriaxone 1 g IV q24h 08/03 --> Azithromycin 500 mg IV q24h 08/03 --> Previous antibiotics: Vancomycin 1,250 mg IV q8h 08/02/16-08/03 Zosyn 4.5 gm IV q8h 08/02/16-08/03 ASSESSMENT: Yoel Escamilla is a 21 year old man without any significant past medical problems who was admitted to [facility] on 08/02/16 with the acute onset of fevers followed by a dry cough that became productive with associated body aches and some left- sided chest pain. CXR shows left upper lobe opacity with hilar adenopathy. Problem list: 1. Left upper lobe pneumonia -Community-acquired -Doubt TB as patient has no risk factors 2. Fever -Secondary to #1 -Resolved PLAN: 1. Continue ceftriaxone 1 gm IV q24h and azithromycin 500 mg IV q24h 2. If he continues to improve will consider change to oral antibiotic regiment 08/06 3. Await AFB smears 4. Await Mycoplasma serologies 5. Await urinary Legionella antigen Lev Pires MD [facility] Office: [phone] Subjective Date of service: 08/05/16 Principal diagnosis: Pneumonia Interval history: Feeling a lot better. Cough is less and minimally productive. Chest discomfort is also much better. ROS: No subjective fever or chills. No nausea, vomiting or diarrhea. Objective - Exam Narrative Exam: GENERAL: Well-developed, well-nourished appearing male who is alert and in no acute distress. Somewhat diaphoretic. HEAD: Normocephalic. No lesions seen. EYES: Pupils are equal reactive to light and accommodation. There is no scleral icterus. Optic fundi are not examined. EARS: External ears are normal. THROAT: Oropharynx is normal with no evidence of oral candidiasis or pharyngitis. NECK: Supple. No enlargement of the thyroid gland. No significant cervical lymphadenopathy. No jugular venous distention at 30. LUNGS: Clear with no adventitious sounds at present. No audible rub. HEART: Regular rate. S1 and S2 are normal. There are no murmurs, gallops, clicks or rubs heard. ABDOMEN: Soft and nontender. Liver and spleen are not palpably enlarged or tender. No palpable masses. Bowel sounds are normoactive. EXTREMITIES: No rash, peripheral lymphadenopathy, clubbing or edema. : Not examined NEUROLOGIC: No focal findings. - Constitutional Vitals: Vital Signs Temp Pulse Resp BP Pulse Ox 98.5 F 18 L 18 107/65 96 08/05/16 08:00 08/05/16 08:00 08/05/16 08:00 08/05/16 08:00 08/05/16 08:00 Temperature -Last 24 Hours Temperature 98.5 F Temperature 98.5 F Temperature 99.0 F Temperature 98.5 F - Labs CBC & Chem 7: 08/03/16 13:26 08/03/16 13:26 Labs: Microbiology 08/04/16 13:07 Peripheral/Venous Blood Culture - Preliminary Culture in Progress 08/04/16 13:10 Peripheral/Venous Blood Culture - Preliminary Culture in Progress 08/03/16 15:15 Sputum - Expectorated Sputum Sputum Culture - oropharyngeal contamination 08/02/16 15:05 Sputum - Expectorated Sputum Sputum Culture - oropharyngeal contamination 08/02/16 Unknown Nasopharyngeal Swab Influenza Types A,B Antigen (PREMA) - Negative Laboratory Tests 08/04/16 21:20 HIV 1&2 Antibody Rapid Non react Imagin08/03/16: CXR: Left upper lobe consolidation. Minimal infiltrate versus atelectasis of the right lower lobe and left upper lobe
[2016-08-05] MEDS: ZITHROMAX 500 MG in NACL 0.9% 250ML 250 ML IV SCH (10:51)
--- NOTE | 2016-08-05 13:23 | Query- Pneumonia ---
Deamain Rick Date:__08/05/16 Quantitative Developer/CDS:Nolvia Peter Phone#:[phone] Exercise your independent professional judgment when responding to query. Questions asked do not imply a particular answer is desired or expected. We greatly appreciate your clarification on this issue. Clinical Documentation States: 21 Y/O male admitted on 08/02/16 with no medical history complains of SOB, fever , body aches for 5 days. Clinical Findings Show: Chest X-ray: Large opacity in the left upper lobe measuring 6cm suggesting infiltrate, mass cannot be entirely excluded. Left hilar lymphadenopathy. CT Chest: Left upper lobe consolidation consistent with inflammatory process. Please further specify known or suspected Etiology: [ ] Aspiration Pneumonia [ ] Gram Negative Pneumonia [ ] Gram Positive Pneumonia [ ] Pseudomonas Pneumonia [ ] MRSA - related Pneumonia [ ] Viral Pneumonia [ ] Candidal Pneumonia [ ] Postoperative Pneumonia [ ] Lobar/Basilar Pneumonia [x] Community Acquired Pneumonia [ ] Bacterial, other (Please specify organism if possible) [ ] Other: [ ] Unable to determine Present on Admission: [x ] Yes (Y) [ ] Clinically undeterminable (W) [ ] No (N) Please also document response in your Progress Notes and/or Discharge Summary and indicate if the condition was present on admission. FLAQUITA
--- NOTE | 2016-08-05 16:19 | Progress Note ---
Assessment and Plan Assessment and plan: Left upper lobe pneumonia. Now on Rocephin and Zithromax for possible communiy acquired pneumonia. Discontinued Zosyn and Vancomycin. To rule out TB. Sputum AFB x 3. ID Physician following consulted. HIV negative . AFB smears still pending. ux manager called the lab and they stated specimen [facility] outside lab Fever due to SEGUN Pneumonia. Rocephin and zithromax. Continue Tylenol when necessary DVT Prophylaxis with SCDs and Lovenox. To CODE STATUS. Discussed with patient and Grand mother at bedside. History Interval history: Feels better, No more headache No fever for 24 hrs, Less cough, Hospitalist Physical - Physical exam Narrative exam: Gen: Not in acute distress HEENT: Normocephalic, atraumatic Neck :supple, no JVD Lungs: Crackles left upper lung field, no wheeze Heart S1 and S2 regular, no murmurs no gallop Abdomen:soft, nontender, nondistended, normal bowel sounds Ext: No edema, no clubbing or cyanosis Neuro: Awake alert oriented x 3 - Constitutional Vitals: Temp Pulse Resp BP Pulse Ox 98.5 F 18 L 18 107/65 96 08/05/16 08:00 08/05/16 08:00 08/05/16 08:00 08/05/16 08:00 08/05/16 08:00 General appearance: Present: mild distress (coughing), well-nourished Results - Labs CBC & Chem 7: 08/03/16 13:26 08/03/16 13:26 Labs: Laboratory Last Values WBC 7.7 K/mm3 (4.5-11.0) 08/03/16 13:26 RBC 4.52 M/mm3 (3.65-5.03) 08/03/16 13:26 Hgb 13.1 gm/dl (11.8-15.2) 08/03/16 13:26 Hct 38.8 % (35.5-45.6) 08/03/16 13:26 MCV 86 fl (84-94) 08/03/16 13:26 MCH 29 pg (28-32) 08/03/16 13:26 MCHC 34 % (32-34) 08/03/16 13:26 RDW 12.7 % (13.2-15.2) L 08/03/16 13:26 Plt Count 185 K/mm3 (140-440) 08/03/16 13:26 [place] % (Auto) Station Manager 08/03/16 13:26 Add Manual Diff Complete 08/03/16 13:26 Total Counted 100 08/03/16 13:26 Seg Neuts % (Manual) 56 % (40.0-70.0) 08/03/16 13:26 Band Neutrophils % 16.0 % 08/03/16 13:26 Lymphocytes % (Manual) 10.0 % (13.4-35.0) L 08/03/16 13:26 Reactive Lymphs % (Man) 0 % 08/03/16 13:26 Monocytes % (Manual) 18 % (0.0-7.3) H 08/03/16 13:26 Eosinophils % (Manual) 0 % (0.0-4.3) 08/03/16 13:26 Basophils % (Manual) 0 % (0.0-1.8) 08/03/16 13:26 Metamyelocytes % 0 % 08/03/16 13:26 Myelocytes % 0 % 08/03/16 13:26 Promyelocytes % 0 % 08/03/16 13:26 Blast Cells % 0 % 08/03/16 13:26 Nucleated RBC % Not Reportable 08/03/16 13:26 Seg Neutrophils # Man 5.0 K/mm3 (1.8-7.7) 08/03/16 13:26 Band Neutrophils # 1.2 K/mm3 08/03/16 13:26 Lymphocytes # (Manual) 0.8 K/mm3 (1.2-5.4) L 08/03/16 13:26 Abs React Lymphs (Man) 0.0 K/mm3 08/03/16 13:26 Monocytes # (Manual) 0.7 K/mm3 (0.0-0.8) 08/03/16 13:26 Eosinophils # (Manual) 0.0 K/mm3 (0.0-0.4) 08/03/16 13:26 Basophils # (Manual) 0.0 K/mm3 (0.0-0.1) 08/03/16 13:26 Metamyelocytes # 0.0 K/mm3 08/03/16 13:26 Myelocytes # 0.0 K/mm3 08/03/16 13:26 Promyelocytes # 0.0 K/mm3 08/03/16 13:26 Blast Cells # 0.0 K/mm3 08/03/16 13:26 WBC Morphology Not Reportable 08/03/16 13:26 Hypersegmented Neuts Not Reportable 08/03/16 13:26 Hyposegmented Neuts Not Reportable 08/03/16 13:26 Hypogranular Neuts Not Reportable 08/03/16 13:26 Smudge Cells Not Reportable 08/03/16 13:26 Toxic Granulation Not Reportable 08/03/16 13:26 Toxic Vacuolation Not Reportable 08/03/16 13:26 Dohle Bodies Not Reportable 08/03/16 13:26 Pelger-Huet Anomaly Not Reportable 08/03/16 13:26 Allie Rods Not Reportable 08/03/16 13:26 Platelet Estimate Not Reportable 08/03/16 13:26 Clumped Platelets Not Reportable 08/03/16 13:26 Plt Clumps, EDTA Not Reportable 08/03/16 13:26 Large Platelets Not Reportable 08/03/16 13:26 Giant Platelets Not Reportable 08/03/16 13:26 Platelet Satelliting Not Reportable 08/03/16 13:26 Plt Morphology Comment Not Reportable 08/03/16 13:26 RBC Morphology Not Reportable 08/03/16 13:26 Dimorphic RBCs Not Reportable 08/03/16 13:26 Polychromasia Not Reportable 08/03/16 13:26 Hypochromasia Station Manager 08/03/16 13:26 Poikilocytosis Not Reportable 08/03/16 13:26 Anisocytosis 1+ 08/03/16 13:26 Microcytosis Not Reportable 08/03/16 13:26 Macrocytosis Not Reportable 08/03/16 13:26 Spherocytes Not Reportable 08/03/16 13:26 Pappenheimer Bodies Not Reportable 08/03/16 13:26 Sickle Cells Not Reportable 08/03/16 13:26 Target Cells Not Reportable 08/03/16 13:26 Tear Drop Cells Not Reportable 08/03/16 13:26 Ovalocytes Not Reportable 08/03/16 13:26 Helmet Cells Not Reportable 08/03/16 13:26 [place] Bodies Not Reportable 08/03/16 13:26 [place] Rings Not Reportable 08/03/16 13:26 [place] Cells Not Reportable 08/03/16 13:26 Bite Cells Not Reportable 08/03/16 13:26 Crenated Cell Not Reportable 08/03/16 13:26 Elliptocytes Not Reportable 08/03/16 13:26 Acanthocytes (Spur) Not Reportable 08/03/16 13:26 Rouleaux Not Reportable 08/03/16 13:26 Hemoglobin C Crystals Not Reportable 08/03/16 13:26 Schistocytes Not Reportable 08/03/16 13:26 Malaria parasites Not Reportable 08/03/16 13:26 [place] Bodies Not Reportable 08/03/16 13:26 Hem Pathologist Commnt No 08/03/16 13:26 Sodium 138 mmol/L (137-145) 08/03/16 13:26 Potassium 3.7 mmol/L (3.6-5.0) 08/03/16 13:26 Chloride 97.7 mmol/L (98-107) L 08/03/16 13:26 Carbon Dioxide 26 mmol/L (22-30) 08/03/16 13:26 Anion Gap 18 mmol/L 08/03/16 13:26 BUN 6 mg/dL (9-20) L 08/03/16 13:26 Creatinine 0.8 mg/dL (0.8-1.5) 08/03/16 13:26 Estimated GFR > 60 ml/min 08/03/16 13:26 BUN/Creatinine Ratio 7.50 % 08/03/16 13:26 Glucose 105 mg/dL (75-100) H 08/03/16 13:26 POC Glucose 101 (70-105) 08/02/16 04:41 Calcium 8.6 mg/dL (8.4-10.2) 08/03/16 13:26 Total Bilirubin 0.4 mg/dL (0.1-1.2) 08/02/16 06:50 AST 28 units/L (5-40) 08/02/16 06:50 ALT 21 units/L (7-56) 08/02/16 06:50 Alkaline Phosphatase 55 units/L (35-129) 08/02/16 06:50 Total Protein 7.4 g/dL (6.3-8.2) 08/02/16 06:50 Albumin 3.9 g/dL (3.9-5) 08/02/16 06:50 Albumin/Globulin Ratio 1.1 % 08/02/16 06:50 Urine Color Yellow (Yellow) 08/02/16 Unknown Urine Turbidity Clear (Clear) 08/02/16 Unknown Urine pH 6.0 (5.0-7.0) 08/02/16 Unknown Ur Specific [place] 1.016 (1.003-1.030) 08/02/16 Unknown Urine Protein <15 mg/dl mg/dL (Negative) 08/02/16 Unknown Urine Glucose (UA) Neg mg/dL (Negative) 08/02/16 Unknown Urine Ketones Tr mg/dL (Negative) 08/02/16 Unknown Urine Blood Neg (Negative) 08/02/16 Unknown Urine Nitrite Neg (Negative) 08/02/16 Unknown Urine Bilirubin Neg (Negative) 08/02/16 Unknown Urine Urobilinogen < 2.0 mg/dL (<2.0) 08/02/16 Unknown Ur Leukocyte Esterase Neg (Negative) 08/02/16 Unknown Urine WBC (Auto) 3.0 /HPF (0.0-6.0) 08/02/16 Unknown Urine RBC (Auto) 3.0 /HPF (0.0-6.0) 08/02/16 Unknown Urine Mucus Few /HPF 08/02/16 Unknown HIV 1&2 Antibody Rapid Non react (Non React) 08/04/16 21:20 HIV P24 Antigen Non react (Non React) 08/04/16 21:20
[2016-08-05] MEDS: LOVENOX SUB-Q SCH (21:47)
[2016-08-06] MEDS: DUONEB 0.5 MG-3 MG/3 ML SOLN IH SCH (09:18)
[2016-08-06] MEDS: ZITHROMAX 500 MG in NACL 0.9% 250ML 250 ML IV SCH (10:00)
[2016-08-06] MEDS: PROTONIX PO SCH (10:00)
[2016-08-06] MEDS: ROCEPHIN/NS 1 GM/50 ML 50 ML IV SCH (10:15)
--- NOTE | 2016-08-06 10:19 | Progress Note ---
Assessment and Plan Current antibiotics: Ceftriaxone 1 g IV q24h 08/03 --> Azithromycin 500 mg IV q24h 08/03 --> Previous antibiotics: Vancomycin 1,250 mg IV q8h 08/02/16-08/03 Zosyn 4.5 gm IV q8h 08/02/16-08/03 ASSESSMENT: Yoel Escamilla is a 21 year old man without any significant past medical problems who was admitted to [facility] on 08/02/16 with the acute onset of fevers followed by a dry cough that became productive with associated body aches and some left- sided chest pain. CXR shows left upper lobe opacity with hilar adenopathy. Problem list: 1. Left upper lobe pneumonia -Community-acquired -Doubt TB as patient has no risk factors, AFB smears X 2 are negative and he is clinically improving without antituberculous therapy -Clinically improving 2. Fever -Secondary to #1 -Resolved PLAN: 1. Okay to discharge patient from an infectious diseases point of view. 2. Would send him out on Levaquin 750 mg po daily times one more week 3. To follow-up with us in 7-10 days 4. Will obtain follow-up CXR as an outpatient. Lev Pires MD [facility] Office: [phone] Subjective Date of service: 08/06/16 Principal diagnosis: Pneumonia Interval history: Feeling a lot better. Cough is less and minimally productive. Chest discomfort is also much better. Still with some myalgias. ROS: No subjective fever or chills. No nausea, vomiting or diarrhea. Objective - Exam Narrative Exam: GENERAL: Well-developed, well-nourished appearing male who is alert and in no acute distress. HEAD: Normocephalic. No lesions seen. EYES: Pupils are equal reactive to light and accommodation. There is no scleral icterus. Optic fundi are not examined. EARS: External ears are normal. THROAT: Oropharynx is normal with no evidence of oral candidiasis or pharyngitis. NECK: Supple. No enlargement of the thyroid gland. No significant cervical lymphadenopathy. No jugular venous distention at 30. LUNGS: Clear with no adventitious sounds at present. No audible rub. HEART: Regular rate. S1 and S2 are normal. There are no murmurs, gallops, clicks or rubs heard. ABDOMEN: Soft and nontender. Liver and spleen are not palpably enlarged or tender. No palpable masses. Bowel sounds are normoactive. EXTREMITIES: No rash, peripheral lymphadenopathy, clubbing or edema. : Not examined NEUROLOGIC: No focal findings. - Constitutional Vitals: Vital Signs Temp Pulse Resp BP Pulse Ox 98.7 F 77 20 121/56 97 08/05/16 23:15 08/05/16 23:15 08/05/16 23:15 08/05/16 23:15 08/05/16 23:15 Temperature -Last 24 Hours Temperature 98.7 F Temperature 98.6 F Temperature 98.6 F - Labs CBC & Chem 7: 08/03/16 13:26 08/03/16 13:26 Labs: Microbiology 08/03/16 20:00 Sputum - Expectorated Sputum AFB Smear Concentration - No AFB seen 08/02/16 15:05 Sputum - Expectorated Sputum AFB Smear Concentration - No AFB seen 08/03/16 15:15 Sputum - Expectorated Sputum Sputum Culture - Oropharyngeal contamination 08/02/16 15:05 Sputum - Expectorated Sputum Sputum Culture - Oropharyngeal contamination 08/02/16 Unknown Nasopharyngeal Swab Influenza Types A,B Antigen (PREMA) - Negative Imagin08/03/16: CXR: Left upper lobe consolidation. Minimal infiltrate versus atelectasis of the right lower lobe and left upper lobe
--- NOTE | 2016-08-06 10:32 | Discharge Summary ---
Providers - Providers Date of Admission: 08/02/16 06:46 Date of discharge: 08/06/16 Attending physician: CECILE VAIL 08/02/16 17:04 Consult to Physician [CONS] Routine Consulting Provider: NISHA LEAHY Reason For Exam: possible TB Place consult to:: boat person ID..Dr. Leahy Notified:: Answering Service Phone number called:: [phone] Was contact made?: Yes If yes, spoke with:: Dr. Leahy Time called:: 20:46 Primary care physician: MAINTENANCE CONTROLLER Hospitalization Condition: Stable Disposition: STILL A PATIENT - Discharge Diagnoses (1) Pneumonia Status: Acute Qualifiers: Laterality: left Lung location: upper lobe of lung Core Measure Documentation - Palliative Care Palliative Care/ Comfort Measures: Not Applicable - Core Measures Any of the following diagnoses?: none Exam - Constitutional Vitals: Temp Pulse Resp BP Pulse Ox 98.7 F 77 20 121/56 97 08/05/16 23:15 08/05/16 23:15 08/05/16 23:15 08/05/16 23:15 08/05/16 23:15 Plan Activity: no restrictions Diet: regular Additional Instructions: 1.Follow up with PCP in 1 week. 2.Follow up with Dr. Pires in 1 week. Follow up with: PRIMARY CARE, [Primary Care Provider] - 3-5 Days Prescriptions: Levofloxacin [Levaquin] 750 mg PO QDAY #7 tablet
[2016-08-06 13:48] VITALS: BP 121/69
[2016-08-06 20:09] LABS: M.PNEUMONIAE AB IGG <=0.90 (<=0.90); MYCOPLASMA PNEUMONIAE AB IGM 5152 U/mL (<770)
== END 2016-08-06 13:56 | disposition home or self-care (01) | DRG 195 ==
LOC: ED 03:15 → 3A 06:46
PROVIDERS: ADMIT Internal Medicine; ATTEND Internal Medicine
DX: J18.9 Pneumonia, unspecified organism (principal); F12.90 Cannabis use, unspecified, uncomplicated; F17.210 Nicotine dependence, cigarettes, uncomplicated; Z84.89 Family history of other specified conditions
CPT/HCPCS: 36415; 71020; 71260; 80048; 80053; 81001; 82962; 85007; 85025; 86738; 87040; 87205; 87400; 87449; 87535; 87806; 94640; 96374; 99406; J0456; J0696; J1650; J2543; J3246; J3370; J7050; Q9967